=== PATIENT | male | born 1945 | race Caucasian/White ===

== ENCOUNTER → 2019-12-31 14:04 | Outpatient (BNVA) | payer MEDICARE, OTHER, SELFPAY | PROVIDERS: Family Provider Internal Medicine; PCP Internal Medicine; Visit Provider Nurse Practitioner Family | DX: R30.0 Dysuria (principal); N40.0 Benign prostatic hyperplasia without lower urinary tract symptoms | CPT/HCPCS: 81001; 87086 ==

== ENCOUNTER 2020-01-11 10:51 | Outpatient (CLI) | payer MEDICARE, OTHER, SELFPAY ==
--- NOTE | 2020-01-11 | XR_ITS ---
WS: [id number] CHEST 2 VIEWS HISTORY: COUGH, SOB X 1 MONTH COMPARISON: 07/04/2019 Lungs: Hyperinflated lungs. Slightly irregular nodule in the LEFT lower lung [place] has been stable s loco at least 2010. No suspicious mass. Cardiac size: Normal. Mediastinum/Aorta: Normal mediastinum. Bones: Mild increase in thoracic kyphosis. XR/XR chest 2V* [id number] IMPRESSION: 1. Chronic emphysema. 2. Stable chest since 09/05/2011.
== END 2020-01-11 10:52 | disposition home or self-care (01) ==
LOC: RADOUTREAD 11:50
PROVIDERS: Family Provider Internal Medicine; PCP Internal Medicine; Visit Provider Internal Medicine
DX: Z01.89 Encounter for other specified special examinations (principal)

== ENCOUNTER → 2020-01-18 09:07 | Outpatient (BNVA) | payer MEDICARE, OTHER, SELFPAY | PROVIDERS: Family Provider Internal Medicine; PCP Internal Medicine; Visit Provider Urology | DX: N40.0 Benign prostatic hyperplasia without lower urinary tract symptoms (principal); N41.1 Chronic prostatitis; R30.0 Dysuria | CPT/HCPCS: 81001 ==

== ENCOUNTER 2020-03-20 07:47 | Outpatient (CLI) | payer MEDICARE, OTHER, SELFPAY ==
--- NOTE | 2020-03-20 08:45 | CT_ITS ---
WS: [id number] CT ABDOMEN PELVIS TECHNIQUE: Noncontrast CT of the abdomen and contrast-enhanced CT of the abdomen and pelvis with levi nal and sagittal reformatted images. CLINICAL INFORMATION: Recurrent pelvic pain COMPARISON: None. DLP: 2723.[address] scans at [facility] use at least one of these dose optimization techniques: automat ed exposure control; mA and/or kV adjustment per patient size (includes targeted exams where dose is matched to clinical indication); or iterative reconstruction. FINDINGS: Normal hepatic parenchymal enhancement. Tiny hepatic cyst or hemangioma in the anterior liver. Normal portal vein and splenic vein. Normal gallbladder. Normal spleen. Adrenal glands are normal. Normal r enal cortical enhancement. No hydronephrosis. Mild renal cortical atrophy. Left renal cyst measuring 1.4 CM. Small esophageal hiatal hernia. Tiny splenic granulomas. Lung bases are well aerated. Normal caliber abdominal aorta. Aortic calcific ation. Gallbladder appears slightly contracted. Sigmoid diverticulosis. No evidence of acute diverticulitis. No evidence of high-grade obstruction. E nlarged calcified prostate. Heterogeneous enhancing slightly nodular prostate measures 3.9 x 5.2 CM. Surgical clips left lower quadrant from prior hernia repair. Normal excretion on the delayed images. Normal filling of the bladder. Prior TURP defect. No obstruct ing renal or ureteral calculi. No inguinal lymphadenopathy. Grade 1 anterolisthesis L5 on S1. Chronic bilateral L5 spondylolysis. CT/CT abdomen pelvis wo/w [id number] IMPRESSION: 1. Normal bilateral renal parenchymal enhancement. No hydronephrosis. Mild randi al cortical atrophy. 2. Normal renal excretion on the delayed imaging. Normal filling of the ureter s and bladder. No evidence of obstructive uropathy. 3. Enlarged heterogeneous nodular prostate with TURP defect. Recommend correla tion PSA. 4. Bladder appears unremarkable. 5. Small esophageal hiatal hernia. 6. Left renal cyst measuring 1.3 CM. 7. Normal caliber abdominal aorta. 8. Sigmoid diverticulosis. No evidence of acute diverticulitis. 9. 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
[2020-03-20 09:11] LABS: Blood Urea Nitrogen 14 mg/dL (8-23)
[2020-03-20] MEDS: iohexol 300 mg/mL 100 mL Btl IV (09:18)
== END 2020-03-20 07:48 | disposition home or self-care (01) ==
PROVIDERS: Family Provider Internal Medicine; PCP Internal Medicine; Visit Provider Nurse Practitioner Family
DX: R10.2 Pelvic and perineal pain (principal); R10.9 Unspecified abdominal pain; N40.0 Benign prostatic hyperplasia without lower urinary tract symptoms; K44.9 Diaphragmatic hernia without obstruction or gangrene; N28.1 Cyst of kidney, acquired; K57.30 Diverticulosis of large intestine without perforation or abscess without bleeding; M47.817 Spondylosis without myelopathy or radiculopathy, lumbosacral region
CPT/HCPCS: 74178; 82565; 84520; Q9967

== ENCOUNTER → 2020-03-21 11:57 | Outpatient (BNVA) | payer MEDICARE, OTHER, SELFPAY | PROVIDERS: Family Provider Internal Medicine; PCP Internal Medicine; Visit Provider Nurse Practitioner Family | DX: N40.0 Benign prostatic hyperplasia without lower urinary tract symptoms (principal); R10.9 Unspecified abdominal pain; R10.2 Pelvic and perineal pain; N41.1 Chronic prostatitis; R30.0 Dysuria | CPT/HCPCS: 81001 ==

== ENCOUNTER → 2020-06-30 13:47 | Outpatient (BNVA) | payer MEDICARE, OTHER, SELFPAY | PROVIDERS: Family Provider Internal Medicine; PCP Internal Medicine; Visit Provider Nurse Practitioner Family | DX: N41.1 Chronic prostatitis (principal); R30.0 Dysuria; R31.0 Gross hematuria; N40.0 Benign prostatic hyperplasia without lower urinary tract symptoms | CPT/HCPCS: 81001 ==

== ENCOUNTER → 2020-09-10 13:00 | Outpatient (BNVA) | payer MEDICARE, OTHER, SELFPAY | PROVIDERS: Family Provider Internal Medicine; PCP Internal Medicine; Visit Provider Urology | DX: Z12.5 Encounter for screening for malignant neoplasm of prostate (principal); N40.0 Benign prostatic hyperplasia without lower urinary tract symptoms; R31.0 Gross hematuria | CPT/HCPCS: 81003; G0103 ==

== ENCOUNTER → 2020-11-17 15:35 | Outpatient (BNVA) | payer MEDICARE, OTHER, SELFPAY | PROVIDERS: Family Provider Internal Medicine; PCP Internal Medicine; Visit Provider Nurse Practitioner Family | DX: N41.1 Chronic prostatitis (principal); R30.0 Dysuria | CPT/HCPCS: 81003; 87086 ==

== ENCOUNTER → 2020-12-08 12:59 | Outpatient (BNVA) | payer MEDICARE, OTHER, SELFPAY | PROVIDERS: Family Provider Internal Medicine; PCP Internal Medicine; Visit Provider Nurse Practitioner Family | DX: N40.0 Benign prostatic hyperplasia without lower urinary tract symptoms (principal); R30.0 Dysuria; N41.1 Chronic prostatitis | CPT/HCPCS: 81003 ==

== ENCOUNTER → 2021-01-07 08:50 | Outpatient (BNVA) | payer MEDICARE, OTHER, SELFPAY | PROVIDERS: Family Provider Internal Medicine; PCP Internal Medicine; Visit Provider Urology | DX: N40.0 Benign prostatic hyperplasia without lower urinary tract symptoms (principal); R30.0 Dysuria; N41.1 Chronic prostatitis; R10.9 Unspecified abdominal pain; R10.2 Pelvic and perineal pain | CPT/HCPCS: 81003 ==

== ENCOUNTER → 2021-02-16 07:51 | Outpatient (BNVA) | payer MEDICARE, OTHER, SELFPAY | PROVIDERS: Family Provider Internal Medicine; PCP Internal Medicine; Visit Provider Urology | DX: N40.0 Benign prostatic hyperplasia without lower urinary tract symptoms (principal); R39.9 Unspecified symptoms and signs involving the genitourinary system | CPT/HCPCS: 81003 ==

== ENCOUNTER → 2021-08-18 09:37 | Outpatient (BNVA) | payer MEDICARE, OTHER, SELFPAY | PROVIDERS: Family Provider Internal Medicine; PCP Internal Medicine; Visit Provider Urology | DX: N40.0 Benign prostatic hyperplasia without lower urinary tract symptoms (principal); R39.9 Unspecified symptoms and signs involving the genitourinary system | CPT/HCPCS: 81003 ==

== ENCOUNTER 2022-04-13 15:35 | Emergency (ER) | payer MEDICARE, OTHER, SELFPAY ==
[2022-04-13] VITALS (8 sets, daily range): BP systolic 130–174; BP diastolic 71–90; PULSE 58–66; RESP 16; TEMP 36.2; O2SAT 95–99; BMI 27.3
--- NOTE | 2022-04-13 16:55 | W.ED.GENADLT ---
HPI - General Adult General: Chief complaint: Abdominal Pain Stated complaint: bloody stool/abdominal cramps Time Seen by Provider: 04/13/22 16:52 History of Present Illness: Patient is a 77-year-old male with a history of aspirin use, prior diverticulosis complicated by lower GI bleeding presenting to the emergency room with bright red blood per rectum. Patient tells me that he has been having on and off rectal bleeding for the last week now has more acutely worsened. Patient in addition reports lightheadedness, and fatigue as a result of it. Patient tells me that he has been using his aspirin for his knee pain more in the last few days. Patient denies any hemoptysis, history of cirrhosis, anticoagulation use, or other complaints. Patient denies any chest pain, shortness of breath, palpitation, abdominal pain, complaints, fever or chills. No other focal complaints at this time. Onset: 1 week ago Duration:1 week Location:home Severity:moderate Associated symptoms: Deny chest pain, dyspnea, nausea, rash, palpitations or vomiting Review of Systems Const: Denies: fever(s) or chills Eyes: Denies: change in vision ENMT: Denies: mouth pain Card: Denies: chest pain or palpitations Resp: Denies: dyspnea or non-productive cough GI: Reports: other (+hematochezia); Denies: abdominal pain, nausea, vomiting or diarrhea : Denies: dysuria Musc: Denies: extremity pain Skin/Breast: Denies: rash or new lesions Neuro: Denies: weakness in extremities Psych: Reports: other (Normal mood) Luis/Lymph: Denies: easy bruising PFS ED PFSH: Medical History BPH without urinary obstruction CAD (coronary artery disease) Family history of prostate cancer Gross hematuria HTN (hypertension) Lower urinary tract symptoms (LUTS) Neuropathy Nocturnal polyuria Surgical History History of cataract surgery BILATERAL History of heart artery stent History of inguinal hernia repair, bilateral History of vasectomy S/P tonsillectomy Family History Mother , at age 79 CAD (coronary artery disease) Father , at age 80 Blood clot associated with vein wall inflammation Other Hypertension Myocardial infarct Stroke Social History Alcohol intake: current Adopted: No Caregiver/support person: No Household members: spouse Marital status: Current occupational status: employed 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 History of recent travel: No Current gender identity: Male Physical Exam Const: COMMON NORMALS: alert HENMT: COMMON NORMALS: atraumatic HEAD & SCALP: atraumatic MOUTH: moist mucous membranes not abnormal Eye: COMMON NORMALS: EOMs intact bilaterally and conjunctivae normal CONJUNCTIVA: Yes conjunctivae normal Neck/C-Spine: COMMON NORMALS: full ROM and supple Resp: COMMON NORMALS: normal respiratory effort and clear to auscultation bilaterally AUSCULTATION: clear to auscultation bilaterally Cardio: COMMON NORMALS: regular rate RATE: regular rate GI: COMMON NORMALS: Soft to palpation and non-tender PALPATION: Yes Soft to palpation OTHER: No focal TTP. NO guarding rebound, guarding, rigidity. No CVA tenderness to percussion. Neg Dodson/Neg McBurney's point tenderness, no suprabupic tenderness to palpation. RECTAL exam: wine colored/bright red bloody stool, no melena, no visible hemorrhoids Extremity: COMMON NORMALS: full ROM Neuro: SENSORIUM/ORIENTATION: Yes alert MOTOR EXAM: No Abnormal motor strength present and Other motor observations present (no focal motor deficits) Psych: COMMON NORMALS: speech normal SPEECH: Yes normal speech MOOD & AFFECT: Yes euthymic mood Course Vital Signs: Vital signs: Vital Signs Temperature 97.1 F L 04/13/22 15:53 Pulse Rate 66 04/13/22 21:43 Respiratory Rate 16 04/13/22 15:53 Blood Pressure 141/85 04/13/22 21:43 Pulse Oximetry 98 04/13/22 21:43 [facility] - General Adult Medical Decision Making 77-year-old male with history of prior diverticulosis complicated by lower GI bleed requiring colonoscopy presenting to emergency room with concerns of rectal bleeding for 1 week now worsening. On physical exam, patient is noted to have 1 color bloody stool on rectal exam. H&H hemoglobin of 14.4 today. Patient has no signs of lightheadedness shortness of breath or generalized weakness. Patient was observed in the emergency room for 2 hours continues to be hemodynamically stable. I discussed case with Dr. Mejia at 8:50 PM who recommended close follow-up tomorrow morning/next few days for outpatient colonoscopy. I have discussed plan with patient and patient agrees. I have given patient follow up with our adult protective caseworker to be seen by Dr. Mejia for outpatient colonoscopy. Patient aware of a call from our adult protective caseworker to schedule for appointment(s) and verbalizes understanding of the importance of following up. Disposition: Discharge. Patient counseled regarding diagnostic impression, treatment plan. Patient given ED strict return precautions to return for continuation, worsening, or development of new symptoms. Instructed to f/u w/ PCP regarding symptoms today. Patient verbalized understanding. Patient is given strict return precaution for any any significant bleeding, abdominal pain, lightheadedness, or any new orconcerning complaints. Lab Data : 04/13/22 18:02 04/13/22 17:30 Laboratory Results WBC 5.4 10^3/uL (4.0-10.0) 04/13/22 18:02 RBC 4.77 10^6/uL (4.1-5.3) 04/13/22 18:02 Hgb 14.4 g/dL (11.7-16.6) 04/13/22 18:02 Hct 42.3 % (42.0-52.0) 04/13/22 18: MCV 88.7 fl (80-94) 04/13/22 18:02 MCH 30.2 pg (28.0-34.0) 04/13/22 18:02 MCHC 34.0 g/dL (30.0-36.0) 04/13/22 18:02 RDW 13.0 % (12.1-15.1) 04/13/22 18:02 Plt Count 195 10^3/cmm (130-400) 04/13/22 18:02 MPV 9.0 fL (7.4-10.4) 04/13/22 18:02 Neut % (Auto) 70.5 % 04/13/22 18:02 Lymph % (Auto) 13.0 % 04/13/22 18:02 Pettis % (Auto) 14.1 % 04/13/22 18:02 Eos % (Auto) 1.1 % 04/13/22 18:02 Baso % (Auto) 0.7 % 04/13/22 18:02 Neut # (Auto) 3.79 10^3/uL (1.8-7.7) 04/13/22 18:02 Lymph # (Auto) 0.7 10^3/uL (0.8-4.8) L 04/13/22 18:02 Pettis # (Auto) 0.8 10^3/uL (0.2-0.9) 04/13/22 18:02 Eos # (Auto) 0.1 10^3/uL (0.0-0.8) 04/13/22 18:02 Baso # (Auto) 0.0 10^3/uL (0.0-0.1) 04/13/22 18:02 Nucleated RBC % (auto) 0 % 04/13/22 18:02 Nucleated RBCs # 0.0 /100WBC 04/13/22 18:02 PT 13.20 SECONDS (12.1-14.9) 04/13/22 18:02 INR 0.97 (0.8-1.2) 04/13/22 18:02 APTT 27.7 SECONDS (23.9-36.7) 04/13/22 18:02 Sodium 137 mmol/L (136-145) 04/13/22 17:30 Potassium 3.9 mmol/L (3.5-5.1) 04/13/22 17:30 Chloride 100 mmol/L (98-107) 04/13/22 17:30 Carbon Dioxide 26 mmol/L (22-29) 04/13/22 17:30 Anion Gap 14.9 (5-19) 04/13/22 17:30 BUN 14 mg/dL (8-23) 04/13/22 17:30 Creatinine 0.9 mg/dL (0.7-1.2) 04/13/22 17:30 GFR Calculation Not Reportable 04/13/22 17:30 Glucose 95 mg/dL (65-115) 04/13/22 17:30 Calculated Osmolality 284 mOsm/kg (285-295) L 04/13/22 17:30 Calcium 8.9 mg/dL (8.5-10.5) 04/13/22 17:30 Total Bilirubin 0.5 mg/dL (0.15-1.2) 04/13/22 17:30 AST 21 U/L (0-40) 04/13/22 17:30 ALT 21 U/L (0-41) 04/13/22 17:30 Alkaline Phosphatase 63 IU/L (40-130) 04/13/22 17:30 Total Protein 7.3 g/dL (6.6-8.7) 04/13/22 17:30 Albumin 4.5 g/dL (3.5-5.2) 04/13/22 17:30 Globulin 2.8 g/dL (1.3-4.6) 04/13/22 17:30 Lipase 45 U/L (13-60) 04/13/22 17:30 Blood Type B Positive 04/13/22 17:30 Rho(D) Type Positive 04/13/22 17:30 Antibody Screen Negative 04/13/22 17:30 Discharge Plan Discharge Patient Disposition: Home Clinical Impression: Blood in stool Condition: Stable Prescriptions: No Action amlodipine 10 mg tablet 10 mg PO QAM 0RF carvedilol 12.5 mg tablet 12.5 mg PO BID 0RF B-complex with vitamin C Tablet 1 tab PO DAILY 0RF Tylenol Ex Str Rapid Release 500 mg Tablet 1,000 mg PO Q6H PRN (Reason: Pain) 0RF vitamin A 10,000 unit Capsule 5,000 unit PO DAILY 0RF lycopene 10 mg Capsule 10 mg PO DAILY 0RF Rx Instructions: administer after a meal Vitamin D3 125 mcg (5,000 unit) Tablet 125 mcg PO DAILY 0RF Discharge Orders: Discharge ED (Routine); Ordered 04/13/22 Ordered By: Sylvain Valentine Referrals: Michael Simon DO [Primary Care Provider] - Discharge Diet: Advance as tolerated Discharge Activity: Increase activity as tolerated Patient Instructions: Rectal Bleeding (ED) Activity Restrictions/Additional Instructions: Our adult protective caseworker will have you follow-up with Dr. Mejia in the next 1-2 days. Call his office number at [phone]. You would be expected to have a phone call with our adult protective caseworker who will put you on the schedule. You can expect a call from us in the next 2-3 days. If you don't hear from us, call us back in the emergency room at [phone]. Please come back to the emergency room notes bleeding is worse, if you are having abdominal pain, vomiting blood, lightheadedness, or any new external complaints Coding Level of Care Code ED Traditional Chinese Herbalist for Chg Fwd Exam Comprehensive
[2022-04-13 18:09] LABS: Alanine Aminotransferase 21 U/L (0-41); Albumin Level 4.5 g/dL (3.5-5.2); Alkaline Phosphatase 63 IU/L (40-130); Aspartate Amino Transferase 21 U/L (0-40); Blood Urea Nitrogen 14 mg/dL (8-23); Calcium 8.9 mg/dL (8.5-10.5); Carbon Dioxide 26 mmol/L (22-29); Chloride 100 mmol/L (98-107); Globulin 2.8 g/dL (1.3-4.6); Glucose 95 mg/dL (65-115); Lipase 45 U/L (13-60); Osmolality Calculated 284 mOsm/kg (285-295); Sodium 137 mmol/L (136-145); Total Bilirubin 0.5 mg/dL (0.15-1.2); Total Protein 7.3 g/dL (6.6-8.7)
[2022-04-13 18:10] LABS: Anion Gap 14.9 (5-19); Potassium 3.9 mmol/L (3.5-5.1)
[2022-04-13 18:39] LABS: Basophils % 0.7 %; Eosinophils # 0.1 10^3/uL (0.0-0.8); Eosinophils % 1.1 %; Hematocrit 42.3 % (42.0-52.0); Hemoglobin 14.4 g/dL (11.7-16.6); Lymphocytes # 0.7 10^3/uL (0.8-4.8); Mean Corpuscular Hemoglobin 30.2 pg (28.0-34.0); Mean Corpuscular Volume 88.7 fl (80-94); Monocytes # 0.8 10^3/uL (0.2-0.9); Monocytes % 14.1 %; Neutrophils # 3.79 10^3/uL (1.8-7.7); Neutrophils % 70.5 %; Nucleated Red Blood Cells % 0 %; Platelet Count 195 10^3/cmm (130-400); Red Blood Count 4.77 10^6/uL (4.1-5.3); White Blood Count 5.4 10^3/uL (4.0-10.0)
[2022-04-13 18:52] LABS: INR 0.97 (0.8-1.2)
[2022-04-13 18:53] LABS: Partial Thromboplastin Time 27.7 SECONDS (23.9-36.7)
--- NOTE | 2022-04-14 10:10 | DCPLANNER ---
manager activities had message to schedule patient a follow up appointment for patient with Dr. Mejia for a consult for a colonoscopy. manager activities called [facility], was told that patient is seeing Dr. Mejia for this and has an appointment scheduled for a colonoscopy.
== END 2022-04-13 21:40 | disposition home or self-care (01) ==
PROVIDERS: Physician Assistant; Emergency Provider Emergency Medicine; PCP Internal Medicine
DX: K92.1 Melena (principal); K57.90 Diverticulosis of intestine, part unspecified, without perforation or abscess without bleeding; I25.10 Atherosclerotic heart disease of native coronary artery without angina pectoris; I10 Essential (primary) hypertension
CPT/HCPCS: 36415; 80053; 83690; 85025; 85610; 85730; 86850; 86900; 99283

== ENCOUNTER 2022-08-16 14:15 | Outpatient (CLI) | payer MEDICARE, OTHER, SELFPAY ==
[2022-08-16 15:10] LABS: Prostate Specific AG Urology 3.28 ng/mL (0-4)
== END 2022-08-16 14:16 | disposition home or self-care (01) ==
LOC: LAB 14:18
PROVIDERS: PCP Internal Medicine; Visit Provider Urology
DX: N40.0 Benign prostatic hyperplasia without lower urinary tract symptoms (principal)
CPT/HCPCS: 36415; 84153

== ENCOUNTER → 2022-08-17 09:27 | Outpatient (BNVA) | payer MEDICARE, OTHER, SELFPAY | PROVIDERS: PCP Internal Medicine; Visit Provider Urology | DX: N40.0 Benign prostatic hyperplasia without lower urinary tract symptoms (principal); R39.9 Unspecified symptoms and signs involving the genitourinary system; Z12.5 Encounter for screening for malignant neoplasm of prostate | CPT/HCPCS: 81003; 99213 ==

== ENCOUNTER 2022-09-11 08:46 | Emergency (ER) | payer MEDICARE, OTHER, SELFPAY ==
[2022-09-11 08:50] VITALS: BMI 26.3
[2022-09-11 08:53] VITALS: BP 140/82; PULSE 80; RESP 16; TEMP 36.8; O2SAT 97
--- NOTE | 2022-09-11 09:08 | W.ED.GENADLT ---
HPI - General Adult General: Chief complaint: General Medical Stated complaint: dark urine Time Seen by Provider: 09/11/22 08:50 Source: patient Mode of arrival: ambulatory Limitations: no limitations History of Present Illness: 77-year-old male states over the last week he has had some intermittent fatigue along with weakness and chills. He states he has never had a fever but he is felt like he has had 1 with chills he has had nausea. He states he is concerned he may have the flu. He denies any pain anywhere he states that the symptoms would go on for 6 days it resolved for 2 days but began again yesterday. He states he seems like his urine is a little darker than normal Associated symptoms: Deny chest pain, dyspnea, headache(s), nausea, rash or vomiting Review of Systems Const: Reports: chills and fatigue Eyes: Denies: blurry vision or eye discomfort ENMT: Denies: throat pain or dental pain Card: Denies: chest pain Resp: Denies: dyspnea GI: Denies: abdominal pain, nausea, vomiting or diarrhea : Denies: dysuria Musc: Denies: neck pain or back pain Skin/Breast: Denies: rash Neuro: Denies: headache(s) Psych: Denies: depression Luis/Lymph: Denies: easy bruising All/Imm: Denies: urticaria PFSH ED PFSH: Medical History BPH without urinary obstruction CAD (coronary artery disease) Family history of prostate cancer Gross hematuria HTN (hypertension) Lower urinary tract symptoms (LUTS) Neuropathy Nocturnal polyuria Surgical History History of cataract surgery BILATERAL History of heart artery stent History of inguinal hernia repair, bilateral History of vasectomy S/P tonsillectomy Family History Mother , at age 79 CAD (coronary artery disease) Father , at age 80 Blood clot associated with vein wall inflammation Other Hypertension Myocardial infarct Stroke Social History Smoking and tobacco status: former smoker Alcohol intake: current Adopted: No Caregiver/support person: No Household members: spouse Marital status: Current occupational status: employed 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 History of recent travel: No Current gender identity: Male Physical Exam Const: COMMON NORMALS: no acute distress, patient oriented x3 and healthy appearing HENMT: COMMON NORMALS: normocephalic and atraumatic HEAD & SCALP: normocephalic and atraumatic Eye: COMMON NORMALS: Equal, round and reactive pupils present and EOMs intact bilaterally PUPIL: Yes Equal, round and reactive pupils present Neck/C-Spine: COMMON NORMALS: full ROM and supple Chest: COMMONS NORMALS: normal inspection of the chest and normal palpation of entire chest wall Resp: COMMON NORMALS: normal respiratory effort, No retractions, No use of accessory muscles and clear to auscultation bilaterally AUSCULTATION: clear to auscultation bilaterally Cardio: COMMON NORMALS: regular rate, regular rhythm and No murmurs present (Cardio) RATE: regular rate RHYTHM: regular rhythm GI: COMMON NORMALS: Normal to inspection, nondistended, normoactive bowel sounds present, Soft to palpation, non-tender and no masses PALPATION: Yes Soft to palpation Extremity: COMMON NORMALS: normal to inspection and full ROM Neuro: COMMON NORMALS: patient oriented x3, moves all extremities and no focal motor deficits Psych: COMMON NORMALS: mental status grossly normal, Normal thought process present and cooperative THOUGHT PROCESS: Normal thought process present Skin: COMMON NORMALS: no rashes or lesions noted and no wounds GENERAL SKIN EXAM: no rashes or lesions noted Course Vital Signs: Vital signs: Vital Signs Temperature 98.3 F 09/11/22 08:53 Pulse Rate 78 09/11/22 10:00 Respiratory Rate 18 09/11/22 10:00 Blood Pressure 136/72 09/11/22 10:00 Pulse Oximetry 91 09/11/22 10:00 Oxygen Delivery Me thod 09/11/22 08:53 MDM - General Adult Medical Decision Making Patient presents here with some general weakness chills and dark urine he does appear to have a urinary tract infection he is well-appearing here he is nonseptic appearing does have a mild leukocytosis we will start him on antibiotics and he is to follow-up his PCP and return if worsening. Lab Data : 09/11/22 09:29 09/11/22 09:29 Radiology Impressions Chest X-Ray 09/11/22 10:04 IMPRESSION: No acute cardiopulmonary abnormality. Laboratory Results WBC 16.2 10^3/uL (4.0-10.0) H 09/11/22: RBC 4.21 10^6/uL (4.1-5.3) 09/11/22: Hgb 12.6 g/dL (11.7-16.6) 09/11/22: Hct 37.4 % (42.0-52.0) L 09/11/22: MCV 88.8 fl (80-94) 09/11/22 09: MCH 29.9 pg (28.0-34.0) 09/11/22: MCHC 33.7 g/dL (30.0-36.0) 09/11/22 RDW 12.9 % (12.1-15.1) 09/11/22: Plt Count 193 10^3/cmm (130-400) 09/11/22 MPV 9.4 fL (7.4-10.4) 09/11/22: Neut % (Auto) 84.9 % 09/11/22: Lymph % (Auto) 3.3 % 09/11/22: Brooks % (Auto) 10.7 % 09/11/22: Eos % (Auto) 0.0 % 09/11/22: Baso % (Auto) 0.2 % 09/11/22: Neut # (Auto) 13.75 10^3/uL (1.8-7.7) H 09/11/22: Lymph # (Auto) 0.5 10^3/uL (0.8-4.8) L 09/11/22: Brooks # (Auto) 1.7 10^3/uL (0.2-0.9) H 09/11/22: Eos # (Auto) 0.0 10^3/uL (0.0-0.8) 09/11/22: Baso # (Auto) 0.0 10^3/uL (0.0-0.1) 09/11/22: Nucleated RBC % (auto) 0 % 09/11/22 Nucleated RBCs # 0.0 /100WBC 09/11/22: Sodium 133 mmol/L (136-145) L 09/11/22: Potassium 3.6 mmol/L (3.5-5.1) 09/11/22: Chloride 96 mmol/L (98-107) L 09/11/22: Carbon Dioxide 23 mmol/L (22-29) 09/11/22: Anion Gap 17.6 (5-19) 09/11/22: BUN 19 mg/dL (8-23) 09/11/22: Creatinine 1.3 mg/dL (0.7-1.2) H 09/11/22 GFR Calculation Not Reportable 09/11/22 Glucose 119 mg/dL (65-115) H 09/11/22: Calculated Osmolality 279 mOsm/kg (285-295) L 09/11/22: Calcium 8.6 mg/dL (8.5-10.5) 09/11/22: Total Bilirubin 2.7 mg/dL (0.15-1.2) H 09/11/22: AST 32 U/L (0-40) 09/11/22: ALT 35 U/L (0-41) 09/11/22: Alkaline Phosphatase 134 U/L (40-130) H 09/11/22: Total Protein 6.3 g/dL (6.6-8.7) L 09/11/22: Albumin 3.2 g/dL (3.5-5.2) L 09/11/22: Globulin 3.1 g/dL (1.3-4.6) 09/11/22 09: Urine Color Dark yellow (Yellow) 09/11/22 08:55 Urine Appearance Cloudy (CLEAR) A 09/11/22 08:55 Urine pH 5 (5-7) 09/11/22 08:55 Ur Specific Wilberforce 1.015 (1.005-1.030) 09/11/22 08:55 Urine Protein 1+ (Negative) H 09/11/22 08:55 Urine Glucose (UA) Norm (Normal) 09/11/22 08:55 Urine Ketones 2+ (Negative) H 11/05/22 08:55 Urine Blood Neg (Negative) 09/11/22 08:55 Urine Nitrate Negative (Negative) 09/11/22 08:55 Urine Bilirubin 1+ (Negative) H 09/11/22 08:55 Urine Urobilinogen 4 mg/dL (Negative) H 09/11/22 08:55 Ur Leukocyte Esterase Trace (Negative) H 09/11/22 08:55 Urine RBC None /hpf (0-2) 09/11/22 08:55 Urine WBC 5-10 /hpf (0-5) H 09/11/22 08:55 Ur Squamous Epith Cells None /hpf (0-5) 09/11/22 08:55 Amorphous Sediment Not Reportable 09/11/22 08:55 Urine Bacteria 2+ /hpf (NONE) H 09/11/22 08:55 Urine Mucus 1+ /hpf 09/11/22 08:55 Influenza Type A Ag negative (Negative) 09/11/22 09:29 Influenza Type B Ag negative (Negative) 09/11/22 09:29 SARS-CoV-2 Ag (Rapid) negative (Negative) 09/11/22 09:29 Discharge Plan Discharge Patient Disposition: Home Clinical Impression: Acute cystitis Qualifiers: Hematuria presence: without hematuria Qualified Code(s): N30.00 - Acute cystitis without hematuria Condition: Stable Prescriptions: New cephalexin 500 mg capsule 500 mg PO TID 7 Days Qty: 21 0RF No Action amlodipine 10 mg tablet 10 mg PO QAM carvedilol 12.5 mg tablet 12.5 mg PO BID B-complex with vitamin C Tablet 1 tab PO DAILY Tylenol Ex Str Rapid Release 500 mg Tablet 1,000 mg PO Q6H PRN (Reason: Pain) vitamin A 10,000 unit Capsule 5,000 unit PO DAILY lycopene 10 mg Capsule 10 mg PO DAILY Rx Instructions: administer after a meal Vitamin D3 125 mcg (5,000 unit) Tablet 125 mcg PO DAILY Discharge Orders: Discharge ED (Routine); Ordered 09/11/22 Ordered By: Ifrah Alcala Referrals: Michael Simon DO [Primary Care Provider] - 1-3 days Discharge Diet: Advance as tolerated Discharge Activity: Resume usual activity Patient Instructions: Urinary Tract Infection in Men (ED) Coding Level of Care Code ED Railroad Detective for Chg Fwd Exam Comprehensive
[2022-09-11 09:20] LABS: Add Urine Microscopic? YES; Bilirubin Urine 1+ (Negative); Blood Urine Neg (Negative); Glucose Urine UA Norm (Normal); Ketones Urine 2+ (Negative); Leukocyte Esterase Urine Trace (Negative); Nitrate Urine Negative (Negative); Protein Urine 1+ (Negative); Specific Gravity, Urine 1.015 (1.005-1.030); Urine Appearance Cloudy (CLEAR); Urine Color Dark Yellow (Yellow); Urobilinogen Urine 4 mg/dL (Negative); pH Urine 5 (5-7)
[2022-09-11] MEDS: sodium chloride 0.9% 1,000 ML 999 ML IV (09:20)
[2022-09-11 09:25] LABS: Bacteria Urine 2+ /hpf; Mucus Urine 1+ /hpf
[2022-09-11 09:26] LABS: Add Urine Culture? No
[2022-09-11 09:56] LABS: Basophils % 0.2 %; Hematocrit 37.4 % (42.0-52.0); Hemoglobin 12.6 g/dL (11.7-16.6); Lymphocytes # 0.5 10^3/uL (0.8-4.8); Lymphocytes % 3.3 %; Mean Corpuscular HGB Conc 33.7 g/dL (30.0-36.0); Mean Corpuscular Hemoglobin 29.9 pg (28.0-34.0); Mean Corpuscular Volume 88.8 fl (80-94); Mean Platelet Volume 9.4 fL (7.4-10.4); Monocytes # 1.7 10^3/uL (0.2-0.9); Monocytes % 10.7 %; Neutrophils # 13.75 10^3/uL (1.8-7.7); Neutrophils % 84.9 %; Nucleated Red Blood Cells % 0 %; Platelet Count 193 10^3/cmm (130-400); Red Blood Count 4.21 10^6/uL (4.1-5.3); Red Cell Distribution Width 12.9 % (12.1-15.1); White Blood Count 16.2 10^3/uL (4.0-10.0)
[2022-09-11 10:00] VITALS: BP 136/72; PULSE 78; RESP 18; O2SAT 91
--- NOTE | 2022-09-11 10:04 | XRR_ITS ---
PROCEDURE INFORMATION: Exam: XR Chest Exam date and time: 09/11/2022 10:07 AM Age: 77 years old Clinical indication: Dyspnea and other: Chills; Prior surgery; Surgery date: 6+ months; Surgery type: Stent TECHNIQUE: Imaging protocol: Radiologic exam of the chest. Views: 1 view. COMPARISON: CR XR chest 2V* [id number] 01/11/2020 10:51 AM FINDINGS: Lungs: No focal airspace disease. Pleural spaces: Unremarkable. No pleural effusion. No pneumothorax. Heart/Mediastinum: Cardiomediastinal silhouette is within normal limits. Bones/joints: Unremarkable. XR/XR chest 1V portable [id number] IMPRESSION: No acute cardiopulmonary abnormality.
--- NOTE | 2022-09-11 10:08 | PC.NURSE ---
DR. BENDER INSTRUCTED NOT TO GET BLOOD CULTURES PRIOR TO ABX
[2022-09-11] MEDS: cefTRIAXone 1,000 MG in sodium chloride 0.9% (plus) 50 ML 100 MG IV (10:11)
[2022-09-11 10:25] LABS: Influenza A by IFA negative (Negative); Influenza B by IFA negative (Negative)
[2022-09-11 10:26] LABS: SARS Covid-2 Antigen negative (Negative)
[2022-09-11 10:33] LABS: Alanine Aminotransferase 35 U/L (0-41); Albumin Level 3.2 g/dL (3.5-5.2); Alkaline Phosphatase 134 U/L (40-130); Anion Gap 17.6 (5-19); Aspartate Amino Transferase 32 U/L (0-40); Blood Urea Nitrogen 19 mg/dL (8-23); Calcium 8.6 mg/dL (8.5-10.5); Carbon Dioxide 23 mmol/L (22-29); Chloride 96 mmol/L (98-107); Globulin 3.1 g/dL (1.3-4.6); Glucose 119 mg/dL (65-115); Osmolality Calculated 279 mOsm/kg (285-295); Potassium 3.6 mmol/L (3.5-5.1); Sodium 133 mmol/L (136-145); Total Bilirubin 2.7 mg/dL (0.15-1.2); Total Protein 6.3 g/dL (6.6-8.7)
[2022-09-11 11:12] VITALS: BP 130/71; PULSE 80; RESP 16; O2SAT 94
== END 2022-09-11 11:16 | disposition home or self-care (01) ==
PROVIDERS: Emergency Provider Emergency Medicine; PCP Internal Medicine
DX: N30.00 Acute cystitis without hematuria (principal); D72.829 Elevated white blood cell count, unspecified
CPT/HCPCS: 71045; 80053; 81001; 85025; 87426; 87804; 96365; 99284; J0696; J7030

== ENCOUNTER 2022-09-22 09:08 | Outpatient (CLI) | payer MEDICARE, OTHER, SELFPAY ==
--- NOTE | 2022-09-22 09:19 | CT_ITS ---
WS: [id number] CT ABDOMEN PELVIS TECHNIQUE: Contrast-enhanced CT of the abdomen and pelvis with coronal and sagittal reformatted image s. CLINICAL INFORMATION: LIVER MASS COMPARISON: Ultrasound September 16, 2022 DLP: 986.[address] scans at [facility] use at least one of these dose optimization techniques: automated e xposure control; mA and/or kV adjustment per patient size (includes targeted exams where dose is matc hed to clinical indication); or iterative reconstruction. FINDINGS: 2 large multiseptated low-attenuation liver lesions as seen on the recent ultrasound. Largest lesion RIGHT hepatic lobe with multiple septations measures approximately 7.8 x 2.4 CM. Smaller lesion in th e dome of the liver has a similar appearance measuring 5.7 x 5.1 CM. Findings are suspicious for hepa tic abscess in particular pyogenic abscess. Additional less likely considerations include amoebic abs cess or atypical cystic metastasis. Hepatomegaly. Diffuse heterogeneous liver enhancement. Mild perip ortal edema. Main portal vein and portal veins appear patent. The RIGHT hepatic lesion involves the R IGHT portal vein. Hepatic veins appear patent. Mild thickening and inflammatory stranding involving the descending LEFT colon and proximal sigmoid c olon suspicious for mild simple diverticulitis. This potentially could be source for the liver lesion s. Gallbladder is contracted with wall enhancement and cholelithiasis. Fluid in the gallbladder fossa mo st likely related to liver dysfunction. Distal common bile duct appears normal. Normal spleen. Small esophageal hiatal hernia. Adrenal glands are normal. Normal renal parenchymal en hancement. No hydronephrosis. LEFT upper pole renal cyst measuring 2.3CM. 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 Grade 1 anterolisthesis measures 7 mm. E vidence of prior TURP. Bladder is contracted. CT/CT abdomen pelvis w con* [id number] IMPRESSION: 1. Two large low-attenuation peripherally enhancing multiloculated liver lesio ns with internal septations suspicious for pyogenic hepatic abscess. Additional possible considerations include mucinous cystic metastasis. Largest RIGHT hepa tic lobe measuring 8.4 x 7.8 cm. 2. Mild thickening and inflammatory stranding involving the descending LEFT co rafael and proximal sigmoid colon suspicious for mild simple diverticulitis. This possibly could be a source for the liver lesions with hematogenous spread. 3. Gallbladder is contracted with wall enhancement and cholelithiasis. Fluid i n the gallbladder fossa most likely related to liver dysfunction. Distal common bile duct appears normal. 4. 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 Grade 1 terrance listhesis measures 7 mm. Notified Michael Simon DO at 09/22/2022 1:22 PM.
[2022-09-22] MEDS: iohexol 350 mg/mL 100 mL Btl PO (09:35)
[2022-09-22] MEDS: iohexol 350 mg/mL 100 mL Btl IV (10:36)
== END 2022-09-22 09:09 | disposition home or self-care (01) ==
PROVIDERS: PCP Internal Medicine; Visit Provider Internal Medicine
DX: R16.0 Hepatomegaly, not elsewhere classified (principal); K80.20 Calculus of gallbladder without cholecystitis without obstruction
CPT/HCPCS: 74177; Q9967

== ENCOUNTER 2022-10-05 08:00 | Outpatient (RCR) | payer MEDICARE, OTHER, SELFPAY ==
[2022-09-29 15:10] VITALS: BMI 26.1
[2022-10-01 08:14] VITALS: BP 105/66; PULSE 74; RESP 18; TEMP 36.4; O2SAT 97
[2022-10-01] MEDS: cefTRIAXone 2,000 MG in sodium chloride 0.9% (plus) 50 ML 100 MG IV (08:15)
[2022-10-02 08:31] VITALS: BP 101/63; PULSE 74; RESP 16; TEMP 36.3; O2SAT 97
[2022-10-02] MEDS: cefTRIAXone 2,000 MG in sodium chloride 0.9% (plus) 50 ML 100 MG IV (08:40)
[2022-10-03] MEDS: cefTRIAXone 2,000 MG in sodium chloride 0.9% (plus) 50 ML 100 MG IV (08:45)
[2022-10-03 08:49] VITALS: BP 115/67; PULSE 68; RESP 18; TEMP 36.2; O2SAT 98
[2022-10-04] MEDS: cefTRIAXone 2,000 MG in sodium chloride 0.9% (plus) 50 ML 100 MG IV (08:15)
[2022-10-04 08:25] LABS: Basophils % 0.5 %; Eosinophils # 0.1 10^3/uL (0.0-0.8); Eosinophils % 0.9 %; Hematocrit 38.3 % (42.0-52.0); Hemoglobin 12.7 g/dL (11.7-16.6); Lymphocytes # 0.9 10^3/uL (0.8-4.8); Lymphocytes % 10.8 %; Mean Corpuscular HGB Conc 33.2 g/dL (30.0-36.0); Mean Corpuscular Hemoglobin 29.5 pg (28.0-34.0); Mean Corpuscular Volume 88.9 fl (80-94); Monocytes # 0.7 10^3/uL (0.2-0.9); Monocytes % 8.7 %; Neutrophils # 6.24 10^3/uL (1.8-7.7); Neutrophils % 78.6 %; Nucleated Red Blood Cells % 0 %; Platelet Count 326 10^3/cmm (130-400); Red Blood Count 4.31 10^6/uL (4.1-5.3); Red Cell Distribution Width 13.8 % (12.1-15.1); White Blood Count 7.9 10^3/uL (4.0-10.0)
[2022-10-04 08:36] VITALS: BP 121/71; PULSE 71; RESP 18; TEMP 36.2; O2SAT 97
[2022-10-04 08:50] LABS: Alanine Aminotransferase 14 U/L (0-41); C Reactive Protein 8.1 mg/L (0.0-4.9)
[2022-10-04 08:53] LABS: Aspartate Amino Transferase 17 U/L (0-40)
[2022-10-05] MEDS: cefTRIAXone 2,000 MG in sodium chloride 0.9% (plus) 50 ML 100 MG IV (07:49)
[2022-10-05 07:56] VITALS: BP 112/66; PULSE 71; RESP 18; TEMP 35.9; O2SAT 97
--- NOTE | 2022-10-05 08:33 | PC.NURSE ---
Final dose Ceftriaxone given. Right powerglide midline cath removed. Cath intact. No hematoma or bleeding noted. Pt instructed on signs and symptoms of infection and to return to PCP for any concerns.
== END 2022-10-06 23:59 | disposition home or self-care (01) ==
LOC: OPS 08:00
PROVIDERS: PCP Internal Medicine; Visit Provider Internal Medicine Infectious Disease
DX: K75.0 Abscess of liver (principal)
CPT/HCPCS: 36592; 84450; 84460; 85025; 86140; 96365; J0696

== ENCOUNTER 2022-10-14 09:26 | Emergency (ER) | payer MEDICARE, OTHER, SELFPAY ==
[2022-10-14 09:30] VITALS: BP 147/85; PULSE 61; RESP 14; TEMP 36.4; O2SAT 98; BMI 26.6
--- NOTE | 2022-10-14 09:40 | USCV_ITS ---
Hemant Cespedes Age: 77 Gender: M : 1945 Exam Date: 10/14/2022 09:56 Ordering Phys: Jessie Joyce Technologist: Willard Brunner [place]am [place] [facility] [place] Indication: LT ARM PAIN AND SWELLING PROCEDURES: Venous duplex imaging was performed in only the left upper extremity. The following venous structures were evaluated: internal jugular vein, subclavian vein, axillary vein, and brachial veins. In addition, the basilic vein and cephalic vein. FINDINGS: Evidence of acute occlusive superficial thrombophlebitis in the left basilic vein with abnormal flow dynamics. No DVT. CONCLUSIONS Superficial thrombophlebitis is detected in the left basilic. Dr. Rosetta Glover DO (Electronically Signed) Final Date: 14 October 2022 11:04 S
--- NOTE | 2022-10-14 09:41 | ED_ITS ---
Documented by User: [email or web address] Vargas 10/14/22 11:51 HPI - Extremity Problem General: Chief complaint: General Medical Stated complaint: port pain Time Seen by Provider: 10/14/22 09:28 Source: patient and family Mode of arrival: ambulatory Limitations: no limitations History of Present Illness: Patient is a nice 77-year-old gentleman who presents to ED today along with his for concerns of pain and swelling to his left upper extremity. Patient states he recently had a PICC line removed from that arm. He states he was placed at [facility] for treatment of li diamond abscesses. He states since the removal, the area has been semi-sore to the touch and he noticed a small amount of swelling to the dorsum of his left hand. He states yesterday he felt a palpable vein just proximal to the elbow and was concerned about a blood clot. He does not complain of shortness of breath or difficulty breathing. No palpitations, chest pain. No fevers. He has no other complaints at this time other than the left arm discomfort. No redness/warmth/streaking to the extremity. MD Complaint: extremity pain and extremity swelling Onset (ago): day(s) Location: left and upper extremity Radiation: none Relieving factors: nothing Exacerbating factors: nothing Associated symptoms: Reports no associated symptoms; Deny chest pain, fever(s) or rash Context: other (recent PICC line removed) Review of Systems Const: Denies: fever(s), chills, body aches, fatigue or malaise Card: Denies: chest pain, palpitations, irregular heart rhythm, edema, swe lling of feet/ankles, lightheadedness, syncope, pre-syncope, dyspnea on exertion or orthopnea Resp: Denies: dyspnea, productive cough, non-productive cough or hemoptysis GI: Denies: abdominal pain Musc: Reports: extremity pain and extremity swelling; Denies: neck pain, back pain, joint pain, joint swelling, joint redness, joint warmth, joint stiffness or limited range of motion Skin/Breast: Denies: rash Neuro: Denies: numbness in extremities, weakness in extremities or sensory changes PFS ED PFSH: Medical History BPH without urinary obstruction CAD (coronary artery disease) Family history of prostate cancer Gross hematuria HTN (hypertension) Lower urinary tract symptoms (LUTS) Neuropathy Nocturnal polyuria Surgical History History of cataract surgery BILATERAL History of heart artery stent History of inguinal hernia repair, bilateral History of vasectomy S/P tonsillectomy Family History Mother , at age 79 CAD (coronary artery disease) Father , at age 80 Blood clot associated with vein wall inflammation Other Hypertension Myocardial infarct Stroke Social History Smoking and tobacco status: former smoker Alcohol intake: current Adopted: No Caregiver/support person: No Household members: spouse Marital status: Current occupational status: employed 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 History of recent travel: No Current gender identity: Male Physical Exam Const: COMMON NORMALS: no acute distress, average body habitus, patient oriented x3, no limitations, healthy appearing, alert and well nourished GENERAL APPEARANCE: cooperative ORIENTATION/CONSCIOUSNESS: Yes awake, Yes oriented to person, Yes oriented to place and Yes oriented to time HENMT: COMMON NORMALS: normocephalic and atraumatic HEAD & SCALP: normal to inspection, normocephalic and atraumatic Neck/C-Spine: COMMON NORMALS: full ROM, no lymphadenopathy and no JVD Chest: COMMONS NORMALS: normal inspection of the chest Resp: COMMON NORMALS: normal respiratory effort and clear to auscultation bilaterally EFFORT & INSPECTION: Yes able to speak in complete sentences AUSCULTATION: clear to auscultation bilaterally Cardio: COMMON NORMALS: no JVD, regular rate and regular rhythm RATE: regular rate RHYTHM: regular rhythm GI: COMMON NORMALS: Normal to inspection, nondistended, normoactive bowel sounds present, Soft to palpation and non-tender PALPATION: Yes Soft to palpation Extremity: COMMON NORMALS: full ROM, capillary refill normal and no joint enlargement OTHER: pt reports soreness to the volar upper arm where PICC line was placed; I don't appreciate any swelling to upper arm or through the forearm; there is one area (just proximal to AC space) that feels like a palpable cord/superficial thrombus vs prominent vein; he has some mild swelling noted to mid dorsal hand; there is no redness/warmth/streaking noted; no diffuse swelling EXTREMITY IMAGE (FRONT): 1. probable superficial thrombus/patient reports area feels sore to the touch Neuro: COMMON NORMALS: patient oriented x3, moves all extremities, no focal motor deficits and no sensory deficits noted SENSORIUM/ORIENTATION: Yes alert, Yes oriented to person, Yes oriented to place and Yes oriented to time Skin: COMMON NORMALS: no rashes or lesions noted GENERAL SKIN EXAM: no rashes or lesions noted Course Vital Signs: Vital signs: Vital Signs Temperature 97.6 F 10/14/22 09:30 Pulse Rate 61 10/14/22 09:30 Respiratory Rate 14 10/14/22 09:30 Blood Pressure 147/85 10/14/22 09:30 Pulse Oximetry 98 10/14/22 09:30 Oxygen Delivery Me thod 10/14/22 09:30 MDM - Extremity (Nontraumatic) Medical Decision Making Patient has a superficial thrombus in his basilic vein. Thrombus was extensive in length so I did consider placing patient on anticoagulation however I think the risk of this would outweigh benefits. Patient does tell me he has a history of severe rectal bleeding requiring transfusion taking aspirin. In addition, he recently had a procedure performed for drainage of liver abscesses making his risk for bleeding elevated. Case was discussed with Dr. Rodriguez who agrees. Patient has an appointment with his PCP Dr. Simon on Tuesday. He may discuss with him for further management. Return to ED precautions given. Discharge Plan Discharge Patient Disposition: Home Clinical Impression: Superficial venous thrombosis of left upper extremity Condition: Stable Prescriptions: No Action amlodipine 10 mg tablet 10 mg PO QAM carvedilol 12.5 mg tablet 12.5 mg PO BID B-complex with vitamin C Tablet 1 tab PO DAILY acetaminophen [Tylenol Ex Str Rapid Release] 500 mg Tablet 1,000 mg PO Q6H PRN (Reason: Pain) vitamin A 10,000 unit Capsule 5,000 unit PO DAILY lycopene 10 mg Capsule 10 mg PO DAILY Rx Instructions: administer after a meal cholecalciferol (vitamin D3) [Vitamin D3] 125 mcg (5,000 unit) Tablet 125 mcg PO DAILY lorazepam 1 mg Tablet 0.5 mg PO BEDTIME PRN (Reason: Sleep) Discharge Orders: Discharge ED (Routine); Ordered 10/14/22 Ordered By: Jessie Joyce Referrals: Michael Simon DO [Primary Care Provider] - Patient Instructions: Superficial Thrombophlebitis (ED), Thrombophlebitis - Superficial Coding Level of Care Code ED Human Anatomy Teacher for Chg Fwd Exam Comprehensive Documented by User: Richard Rodriguez DO 10/14/22 14:24 HPI - Extremity Problem General: Chief complaint: General Medical Stated complaint: port pain Time Seen by Provider: 10/14/22 09:28 PFSH ED PFSH: Medical History BPH without urinary obstruction CAD (coronary artery disease) Family history of prostate cancer Gross hematuria HTN (hypertension) Lower urinary tract symptoms (LUTS) Neuropathy Nocturnal polyuria Surgical History History of cataract surgery BILATERAL History of heart artery stent History of inguinal hernia repair, bilateral History of vasectomy S/P tonsillectomy Family History Mother , at age 79 CAD (coronary artery disease) Father , at age 80 Blood clot associated with vein wall inflammation Other Hypertension Myocardial infarct Stroke Social History Smoking and tobacco status: former smoker Alcohol intake: current Adopted: No Caregiver/support person: No Household members: spouse Marital status: Current occupational status: employed 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 probable superficial thrombus/patient reports area feels sore to the touch Course Vital Signs: Vital signs: Vital Signs Temperature 97.6 F 10/14/22 09:30 Pulse Rate 61 10/14/22 09:30 Respiratory Rate 14 10/14/22 09:30 Blood Pressure 147/85 10/14/22 09:30 Pulse Oximetry 98 10/14/22 09:30 Oxygen Delivery Me thod 10/14/22 09:30 MDM - Extremity (Nontraumatic) Medical Decision Making Patient has a superficial thrombus in his basilic vein. Thrombus was extensive in length so I did consider placing patient on anticoagulation however I think the risk of this would outweigh benefits. Patient does tell me he has a history of severe rectal bleeding requiring transfusion taking aspirin. In addition, he recently had a procedure performed for drainage of liver abscesses making his risk for bleeding elevated. Case was discussed with Dr. Rodriguez who agrees. Patient has an appointment with his PCP Dr. Simon on Tuesday. He may discuss with him for further management. Return to ED precautions given. Chart reviewed and patient discussed with midlevel. Agree with assessment and plan. Discharge Plan Discharge Patient Disposition: Home Clinical Impression: Superficial venous thrombosis of left upper extremity Condition: Stable Prescriptions: No Action amlodipine 10 mg tablet 10 mg PO QAM carvedilol 12.5 mg tablet 12.5 mg PO BID B-complex with vitamin C Tablet 1 tab PO DAILY acetaminophen [Tylenol Ex Str Rapid Release] 500 mg Tablet 1,000 mg PO Q6H PRN (Reason: Pain) vitamin A 10,000 unit Capsule 5,000 unit PO DAILY lycopene 10 mg Capsule 10 mg PO DAILY Rx Instructions: administer after a meal cholecalciferol (vitamin D3) [Vitamin D3] 125 mcg (5,000 unit) Tablet 125 mcg PO DAILY lorazepam 1 mg Tablet 0.5 mg PO BEDTIME PRN (Reason: Sleep) Discharge Orders: Discharge ED (Routine); Ordered 10/14/22 Ordered By: Jessie Joyce Referrals: Michael Simon DO [Primary Care Provider] - Patient Instructions: Superficial Thrombophlebitis (ED), Thrombophlebitis - Superficial Coding Level of Care Code ED Human Anatomy Teacher for Chg Fwd Exam Comprehensive
== END 2022-10-14 10:39 | disposition home or self-care (01) ==
PROVIDERS: Emergency Provider Physician Assistant; PCP Internal Medicine
DX: I82.612 Acute embolism and thrombosis of superficial veins of left upper extremity (principal); I25.10 Atherosclerotic heart disease of native coronary artery without angina pectoris; I10 Essential (primary) hypertension; Z87.891 Personal history of nicotine dependence
CPT/HCPCS: 93971; 99284

== ENCOUNTER 2022-11-11 15:35 | Outpatient (CLI) | payer MEDICARE, OTHER, SELFPAY ==
--- NOTE | 2022-11-11 15:51 | USR_ITS ---
PROCEDURE INFORMATION: Exam: US Abdomen, Limited; Right Upper Quadrant Exam date and time: 11/11/2022 3:57 PM Age: 77 years old Clinical indication: Abnormal findings; Abnormal radiologic finding of the abdomen; Radiologic exam and body structure: US liver; Additional info: Follow up liver abscess, off treatment x 1 month for liver abscess, evaluate for interval change TECHNIQUE: Imaging protocol: Real time ultrasound of the abdomen with image documentation. Limited exam focused on the right upper quadrant. COMPARISON: US abdomen complete* [id number] 09/16/2022 1:55 PM FINDINGS: Liver: 3.6 cm thick-walled cystic lesion in the central liver concerning for a residual or resolving abscess depending on the clinical scenario, previously this measured up to 6 cm. Gallbladder: Cholelithiasis, negative for cholecystitis. Biliary ducts: Normal. No stones. No dilation. Pancreas: Visualized pancreas is unremarkable. Right kidney: Normal. No mass. No hydronephrosis. US/US liver [id number] IMPRESSION: 1. 3.6 cm thick-walled cystic lesion in the central liver concerning for a residual or resolving abscess depending on the clinical scenario, previously this measured up to 6 cm. 2. Cholelithiasis, negative for cholecystitis.
== END 2022-11-11 15:36 | disposition home or self-care (01) ==
LOC: RAD 15:38
PROVIDERS: PCP Internal Medicine; Visit Provider Student in an Organized Health Care Education/Training Program
DX: K75.0 Abscess of liver (principal); K80.20 Calculus of gallbladder without cholecystitis without obstruction
CPT/HCPCS: 76705; 99205

== ENCOUNTER 2022-12-24 12:43 | Outpatient (CLI) | payer MEDICARE, OTHER, SELFPAY ==
[2022-12-24 13:26] LABS: Blood Urea Nitrogen 16 mg/dL (8-23)
[2022-12-24] MEDS: iohexol 350 mg/mL 500 mL Btl (per mL) IV (13:31)
--- NOTE | 2022-12-24 14:30 | CT_ITS ---
WS: [id number] CT ABDOMEN PELVIS TECHNIQUE: Contrast-enhanced CT of the abdomen and pelvis with coronal and sagittal reformatted image s. CLINICAL INFORMATION: Abscess of liver COMPARISON: CT September 22, 2022 and ultrasound 11/11/22 DLP: 477.[address] scans at [facility] use at least one of these dose optimization techniques: automated e xposure control; mA and/or kV adjustment per patient size (includes targeted exams where dose is matc hed to clinical indication); or iterative reconstruction. FINDINGS: Diffuse fatty infiltration liver. Normal portal vein and splenic vein. Improved previously described multiloculated liver abscesses. This is significantly improved and nearly resolved. Small a mount of residual low-attenuation heterogeneous enhancement at the leonor hepatis measuring 3.1 x 2.5 CM. Small focus of low-attenuation in the dome of the liver measuring 10 mm. No drainable fluid colle ctions. Normal portal vein and splenic vein. Splenic granulomas. Normal pancreatic parenchymal enhancement. A drenal glands are normal. No hydronephrosis in either kidney. LEFT renal cyst. Small esophageal hiata l hernia. Lung bases are well aerated. Marked enlargement of the prostate appears unchanged. Diffuse bladder wall thickening consistent with bladder outlet obstruction. Prostate calcifications. Thickening of the seminal vesicles. Extensive s igmoid diverticulosis. Extensive colonic diverticulosis. No evidence of acute diverticulitis. No evid ence of high-grade obstruction. Normal caliber abdominal aorta. Mild aortic calcification. Tiny fat-containing umbilical hernia. CT/CT abdomen pelvis w con* [id number] IMPRESSION: 1. Previously described multiloculated large hepatic abscesses have significan tly improved and nearly resolved. Small amount of residual low attenuation at t he leonor hepatis measuring 3.1 x 2.4 cm. This appears decreased in size since t he prior ultrasound. Additional small focus of low-attenuation in the liver dom e measuring 10 mm. No drainable fluid collections. Recommend continued follow-u p to resolution. 2. Small esophageal hiatal hernia. 3. Extensive colonic diverticulosis. 4. Markedly enlarged prostate with seminal vesicle thickening appears unchange d. Evidence of bladder outlet obstruction. 5. 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 Grade 1 terrance listhesis measures 7 mm.
== END 2022-12-24 12:44 | disposition home or self-care (01) ==
PROVIDERS: PCP Internal Medicine; Visit Provider Student in an Organized Health Care Education/Training Program
DX: K75.0 Abscess of liver (principal); K44.9 Diaphragmatic hernia without obstruction or gangrene; K57.90 Diverticulosis of intestine, part unspecified, without perforation or abscess without bleeding; N40.0 Benign prostatic hyperplasia without lower urinary tract symptoms
CPT/HCPCS: 74177; 82565; 84520; Q9967

== ENCOUNTER → 2023-06-30 13:18 | Outpatient (BNVA) | payer MEDICARE, OTHER, SELFPAY | PROVIDERS: PCP Internal Medicine; Visit Provider Dermatology | DX: L57.0 Actinic keratosis (principal); L82.1 Other seborrheic keratosis; I78.8 Other diseases of capillaries; L60.3 Nail dystrophy; L81.4 Other melanin hyperpigmentation; D23.72 Other benign neoplasm of skin of left lower limb, including hip; Z85.820 Personal history of malignant melanoma of skin | CPT/HCPCS: 17000; 17003; 99203 ==

== ENCOUNTER → 2023-07-20 07:48 | Outpatient (BNVA) | payer MEDICARE, OTHER, SELFPAY | PROVIDERS: PCP Internal Medicine; Visit Provider Dermatology | DX: L60.9 Nail disorder, unspecified (principal) | CPT/HCPCS: 11755 ==

== ENCOUNTER → 2023-08-11 14:56 | Outpatient (BNVA) | payer MEDICARE, OTHER, SELFPAY | PROVIDERS: PCP Internal Medicine; Visit Provider Dermatology | DX: L60.3 Nail dystrophy (principal); L08.9 Local infection of the skin and subcutaneous tissue, unspecified | CPT/HCPCS: 99213 ==

== ENCOUNTER 2023-09-15 13:33 | Outpatient (CLI) | payer MEDICARE, OTHER, SELFPAY ==
[2023-09-15 14:11] LABS: Troponin T (5th) Once 13 ng/L (0-15)
== END 2023-09-15 13:34 | disposition home or self-care (01) ==
LOC: LAB 14:07
PROVIDERS: PCP Internal Medicine; Visit Provider Family Medicine
DX: R06.09 Other forms of dyspnea (principal)
CPT/HCPCS: 84484

== ENCOUNTER → 2023-10-03 13:27 | Outpatient (BNVA) | payer MEDICARE, OTHER, SELFPAY | PROVIDERS: PCP Internal Medicine; Visit Provider Dermatology | DX: L60.3 Nail dystrophy (principal); L81.4 Other melanin hyperpigmentation; L70.8 Other acne; L82.1 Other seborrheic keratosis; D18.01 Hemangioma of skin and subcutaneous tissue; L57.8 Other skin changes due to chronic exposure to nonionizing radiation; Z08 Encounter for follow-up examination after completed treatment for malignant neoplasm; Z85.820 Personal history of malignant melanoma of skin | CPT/HCPCS: 99213 ==

== ENCOUNTER → 2023-11-10 07:06 | Outpatient (BNVA) | payer MEDICARE, OTHER, SELFPAY | PROVIDERS: PCP Internal Medicine; Visit Provider Podiatrist Foot & Ankle Surgery | DX: L60.0 Ingrowing nail (principal) | CPT/HCPCS: 11750 ==

== ENCOUNTER → 2023-11-17 13:01 | Outpatient (BNVA) | payer MEDICARE, OTHER, SELFPAY | PROVIDERS: PCP Internal Medicine; Visit Provider Podiatrist Foot & Ankle Surgery | DX: L60.0 Ingrowing nail (principal); Z98.890 Other specified postprocedural states | CPT/HCPCS: 99024 ==

== ENCOUNTER → 2023-11-24 07:58 | Outpatient (BNVA) | payer MEDICARE, OTHER, SELFPAY | PROVIDERS: PCP Internal Medicine; Visit Provider Podiatrist Foot & Ankle Surgery | DX: Z98.890 Other specified postprocedural states (principal) | CPT/HCPCS: 99213 ==

== ENCOUNTER → 2024-01-23 08:11 | Outpatient (BNVA) | payer MEDICARE, OTHER, SELFPAY | PROVIDERS: PCP Internal Medicine; Visit Provider Podiatrist Foot & Ankle Surgery | DX: Z98.890 Other specified postprocedural states (principal) | CPT/HCPCS: 99212 ==

== ENCOUNTER → 2024-02-06 08:23 | Outpatient (BNVA) | payer MEDICARE, OTHER, SELFPAY | PROVIDERS: PCP Internal Medicine; Visit Provider Podiatrist Foot & Ankle Surgery | DX: Z98.890 Other specified postprocedural states (principal); L60.3 Nail dystrophy | CPT/HCPCS: 99213 ==

== ENCOUNTER 2024-02-14 14:18 | Outpatient (CLI) | payer MEDICARE, OTHER, SELFPAY ==
[2024-02-14 14:54] LABS: Basophils % 0.7 %; Eosinophils # 0.1 10^3/uL (0.0-0.8); Eosinophils % 1.5 %; Hematocrit 45.5 % (37-53); Lymphocytes # 1.3 10^3/uL (0.8-4.8); Lymphocytes % 22.5 %; Mean Corpuscular HGB Conc 33.8 g/dL (30-55); Mean Corpuscular Hemoglobin 30.3 pg (27-33); Mean Corpuscular Volume 89.6 fl (82-101); Monocytes # 0.5 10^3/uL (0.2-0.9); Neutrophils % 66.1 %; Nucleated Red Blood Cells % 0 %; Platelet Count 249 10^3/cmm (157-399); Red Blood Count 5.08 10^6/uL (3.85-5.65); Red Cell Distribution Width 13.1 % (12.1-15.1)
[2024-02-14 14:55] LABS: Erythrocyte Sedimentation Rate 2 mm/hr (0-10)
[2024-02-14 15:11] LABS: Alanine Aminotransferase 13 U/L (0-41); Albumin Level 4.1 g/dL (3.5-5.2); Alkaline Phosphatase 61 U/L (40-130); Anion Gap 12.7 (5-19); Aspartate Amino Transferase 15 U/L (0-40); Blood Urea Nitrogen 15 mg/dL (8-23); Carbon Dioxide 29 mmol/L (22-29); Chloride 104 mmol/L (98-107); Globulin 2.9 g/dL (1.3-4.6); Glucose 116 mg/dL (65-115); Osmolality Calculated 296 mOsm/kg (285-295); Potassium 3.7 mmol/L (3.5-5.1); Sodium 142 mmol/L (136-145); Total Bilirubin 0.7 mg/dL (0.15-1.2)
== END 2024-02-14 14:19 | disposition home or self-care (01) ==
LOC: LAB 14:19
PROVIDERS: PCP Internal Medicine; Visit Provider Podiatrist Foot & Ankle Surgery
DX: Z00.00 Encounter for general adult medical examination without abnormal findings (principal); Z98.890 Other specified postprocedural states
CPT/HCPCS: 36415; 80053; 85025; 85651

== ENCOUNTER → 2024-02-20 13:59 | Outpatient (BNVA) | payer MEDICARE, OTHER, SELFPAY | PROVIDERS: PCP Internal Medicine; Visit Provider Dermatology | DX: K13.79 Other lesions of oral mucosa (principal); L82.1 Other seborrheic keratosis; L73.8 Other specified follicular disorders; I78.8 Other diseases of capillaries; L81.7 Pigmented purpuric dermatosis; D23.71 Other benign neoplasm of skin of right lower limb, including hip; L57.0 Actinic keratosis; Z85.820 Personal history of malignant melanoma of skin | CPT/HCPCS: 17000; 99213 ==

== ENCOUNTER → 2024-02-27 06:59 | Outpatient (BNVA) | payer MEDICARE, OTHER, SELFPAY | PROVIDERS: PCP Internal Medicine; Visit Provider Podiatrist Foot & Ankle Surgery | DX: Z98.890 Other specified postprocedural states (principal); L60.3 Nail dystrophy | CPT/HCPCS: 99213 ==

== ENCOUNTER → 2024-05-29 14:00 | Outpatient (BNVA) | payer MEDICARE, OTHER, SELFPAY | PROVIDERS: PCP Internal Medicine; Visit Provider Dermatology | DX: D48.5 Neoplasm of uncertain behavior of skin (principal); L82.0 Inflamed seborrheic keratosis; L82.1 Other seborrheic keratosis; D36.14 Benign neoplasm of peripheral nerves and autonomic nervous system of thorax; L57.0 Actinic keratosis; L02.221 Furuncle of abdominal wall; D23.72 Other benign neoplasm of skin of left lower limb, including hip; L81.7 Pigmented purpuric dermatosis; Z85.820 Personal history of malignant melanoma of skin | CPT/HCPCS: 11102; 17000; 17110; 99213 ==

== ENCOUNTER → 2024-06-15 10:45 | Outpatient (BNVA) | payer MEDICARE, OTHER, SELFPAY | PROVIDERS: PCP Internal Medicine; Visit Provider Dermatology | DX: C44.519 Basal cell carcinoma of skin of other part of trunk (principal); C44.319 Basal cell carcinoma of skin of other parts of face | CPT/HCPCS: 17262; 99213 ==

== ENCOUNTER → 2024-09-03 12:41 | Outpatient (BNVA) | payer MEDICARE, OTHER, SELFPAY | PROVIDERS: PCP Internal Medicine; Visit Provider Dermatology | DX: L60.9 Nail disorder, unspecified (principal); L82.0 Inflamed seborrheic keratosis | CPT/HCPCS: 11730; 11755; 17110 ==

== ENCOUNTER → 2024-09-10 11:05 | Outpatient (BNVA) | payer MEDICARE, OTHER, SELFPAY | PROVIDERS: PCP Internal Medicine; Visit Provider Dermatology | DX: L60.3 Nail dystrophy (principal) | CPT/HCPCS: 99214 ==

== ENCOUNTER → 2024-09-24 13:15 | Outpatient (BNVA) | payer MEDICARE, OTHER, SELFPAY | PROVIDERS: PCP Internal Medicine; Visit Provider Dermatology | DX: L60.3 Nail dystrophy (principal); Z48.817 Encounter for surgical aftercare following surgery on the skin and subcutaneous tissue | CPT/HCPCS: 99213 ==

== ENCOUNTER → 2024-10-18 14:41 | Outpatient (BNVA) | payer MEDICARE, OTHER, SELFPAY | PROVIDERS: PCP Internal Medicine; Visit Provider Dermatology | DX: L57.8 Other skin changes due to chronic exposure to nonionizing radiation (principal); L82.1 Other seborrheic keratosis; Z85.820 Personal history of malignant melanoma of skin; Z08 Encounter for follow-up examination after completed treatment for malignant neoplasm; Z85.828 Personal history of other malignant neoplasm of skin | CPT/HCPCS: 17000; 99213 ==

== ENCOUNTER → 2025-01-29 15:02 | Outpatient (BNVA) | payer MEDICARE, OTHER, SELFPAY | PROVIDERS: PCP Internal Medicine; Visit Provider Dermatology | DX: L57.8 Other skin changes due to chronic exposure to nonionizing radiation (principal); L82.1 Other seborrheic keratosis; D36.14 Benign neoplasm of peripheral nerves and autonomic nervous system of thorax; D18.01 Hemangioma of skin and subcutaneous tissue; Z85.820 Personal history of malignant melanoma of skin; Z08 Encounter for follow-up examination after completed treatment for malignant neoplasm; Z85.828 Personal history of other malignant neoplasm of skin; L57.0 Actinic keratosis | CPT/HCPCS: 17000; 99213 ==

== ENCOUNTER → 2025-06-11 13:11 | Outpatient (BNVA) | payer MEDICARE, OTHER, SELFPAY | PROVIDERS: PCP Internal Medicine; Visit Provider Podiatrist Foot & Ankle Surgery | DX: M25.572 Pain in left ankle and joints of left foot (principal); M76.62 Achilles tendinitis, left leg | CPT/HCPCS: 73610; 99213 ==

== ENCOUNTER → 2025-07-16 08:45 | Outpatient (BNVA) | payer MEDICARE, OTHER, SELFPAY | PROVIDERS: PCP Internal Medicine; Visit Provider Podiatrist Foot & Ankle Surgery | DX: M76.62 Achilles tendinitis, left leg (principal) | CPT/HCPCS: 99213 ==

== ENCOUNTER → 2025-08-19 10:44 | Outpatient (BNVA) | payer MEDICARE, OTHER, SELFPAY | PROVIDERS: PCP Internal Medicine; Visit Provider Dermatology | DX: L57.8 Other skin changes due to chronic exposure to nonionizing radiation (principal); L82.1 Other seborrheic keratosis; D36.14 Benign neoplasm of peripheral nerves and autonomic nervous system of thorax; D36.15 Benign neoplasm of peripheral nerves and autonomic nervous system of abdomen; D18.01 Hemangioma of skin and subcutaneous tissue; I78.8 Other diseases of capillaries; L60.3 Nail dystrophy; Z85.828 Personal history of other malignant neoplasm of skin; Z08 Encounter for follow-up examination after completed treatment for malignant neoplasm; Z85.820 Personal history of malignant melanoma of skin; L57.0 Actinic keratosis | CPT/HCPCS: 17000; 99213 ==